=== PATIENT | male | born 1990 | race Two or more races ===

== ENCOUNTER 2016-06-29 21:06 | Emergency (ER) | payer OTHER ==
[2016-06-29] MEDS ORDERED: HYDROCODONE/ACETAMINOPHEN 5/325MG TABLET ONE (23:29)
--- NOTE | 2016-06-30 07:31 | RAD ---
Exam: Two-view chest COMPARISON: None INDICATION: Right lower anterior chest pain after fall at work 5 days ago. FINDINGS: PA and lateral views of the chest were obtained. Cardiac silhouette is within normal limits. Lungs are well-inflated. There is no focal airspace disease or pleural effusion. No pneumothorax is identified. No displaced rib fracture is seen. IMPRESSION: Negative two-view chest.
== END 2016-06-29 23:54 | disposition home or self-care (01) ==
LOC: ED 21:06
DX: S22.31XA Fracture of one rib, right side, initial encounter for closed fracture (principal); W17.89XA Other fall from one level to another, initial encounter; Y93.01 Activity, walking, marching and hiking; Y92.9 Unspecified place or not applicable; Y99.0 Civilian activity done for income or pay
CPT/HCPCS: 71020; 99283 ×2; A9270